=== PATIENT | female | born 1980 | race Caucasian/White ===

== ENCOUNTER 2022-02-07 13:14 | Emergency (ER) | payer OTHER ==
[2022-02-07 13:44] LABS: HEMOGLOBIN 12.8 gm/dl (12.3-15.3); RED BLOOD COUNT 4.69 M/UL (4.00-5.10); WHITE BLOOD COUNT 22.5 K/UL (4.5-11.0)
[2022-02-07 14:14] LABS: BUN/CREATININE RATIO 11 (0-10)
== END 2022-02-07 18:38 | disposition short-term general hospital (02) ==
LOC: ER1 13:14
DX: I31.3 Pericardial effusion (noninflammatory) (principal); Z88.8 Allergy status to other drugs, medicaments and biological substances; Z20.822 Contact with and (suspected) exposure to COVID-19
CPT/HCPCS: 71045; 80053; 82550; 82553; 83605; 83880; 84484; 85025; 87040; 93005; 96374; 96375; 99285; J0696; J2270; J2405; Q9967; U0002